=== PATIENT | male | born 1960 | race Caucasian/White ===

== ENCOUNTER 2025-02-04 10:41 | Emergency (ER) | payer MEDICARE, BC ==
[~2025-02-04] VITALS: Ht 182.9 cm; Wt 133.8 kg
[2025-02-04] MEDS ORDERED: TDAP [DIPH/PERTUSSIS/TET] 0.5 ML VIAL IM ONE (11:05)
[2025-02-04] MEDS: TDAP [DIPH/PERTUSSIS/TET] 0.5 ML VIAL IM ONE (11:10)
[2025-02-04 12:16] VITALS: BP 141/85; TEMP 98.4; O2SAT 94
== END 2025-02-04 12:16 | disposition home or self-care (01) ==
LOC: ER 10:52
DX: S01.111A Laceration without foreign body of right eyelid and periocular area, initial encounter (principal); I11.9 Hypertensive heart disease without heart failure; H11.31 Conjunctival hemorrhage, right eye; R51.9 Headache, unspecified; Z88.0 Allergy status to penicillin; W01.10XA Fall on same level from slipping, tripping and stumbling with subsequent striking against unspecified object, initial encounter; Y93.89 Activity, other specified; Y92.89 Other specified places as the place of occurrence of the external cause; Y99.9 Unspecified external cause status
CPT/HCPCS: 70450-TC; 70486-TC; 72125-TC; 90715